=== PATIENT | male | born 1960 | race Caucasian/White ===

== ENCOUNTER 2017-11-26 12:10 | Emergency (ER) | payer OTHER ==
[2017-11-26 12:12] VITALS: BMI 25.4
[2017-11-26 12:22] VITALS: BP 145/86; PULSE 81; RESP 16; TEMP 97.9; O2SAT 96
--- NOTE | 2017-11-26 13:16 | C.PDOC ---
History Of Present Illness REQUESTING MED REFILL. RAN OUT 1 MO AGO "I LOST TRACK OF TIME". OTHERWISE ASYMPT EXAM NEG Time Seen by Provider: 11/26/17 12:41 Chief Complaint (Nursing): Med Refill History Per: Patient History/Exam Limitations: no limitations Onset/Duration Of Symptoms: Other (ran out of meds 1 month ago) Past Medical History Reviewed: Historical Data, Nursing Documentation, Vital Signs Vital Signs: Last Vital Signs Temp 97.9 F 11/26/17 12:20 Pulse 81 11/26/17 12:20 Resp 16 11/26/17 12:20 BP 145/86 11/26/17 12:20 Pulse Ox 96 11/26/17 13:16 - Medical History PMH: Diabetes, HTN, Hyperlipidemia Surgical History: Back Surgery Family History: States: No Known Family Hx - Social History Hx Tobacco Use: No (Ex-smoker) Hx Alcohol Use: No Hx Substance Use: No - Immunization History Hx Tetanus Toxoid Vaccination: No Hx Influenza Vaccination: No Hx Pneumococcal Vaccination: No Review Of Systems Except As Marked, All Systems Reviewed And Found Negative. Constitutional: Negative for: Fever Cardiovascular: Negative for: Chest Pain Respiratory: Negative for: Shortness of Breath Gastrointestinal: Negative for: Nausea, Vomiting Neurological: Negative for: Weakness, Numbness Physical Exam - Physical Exam Appears: Non-toxic, No Acute Distress Skin: Warm, Dry, No Rash Eye(s): bilateral: Normal Inspection, PERRL, EOMI Oral Mucosa: Moist Respiratory: Normal Breath Sounds Extremity: Normal ROM, No Swelling Neurological/Psych: Oriented x3, Normal Speech ED Course And Treatment O2 Sat by Pulse Oximetry: 96 Disposition Counseled Patient/Family Regarding: Diagnosis, Need For Followup, Rx Given - Disposition Referrals: [facility] [Outside] [facility] [Outside] Disposition: HOME/ ROUTINE Disposition Time: 13:15 Condition: GOOD Prescriptions: Aspirin [Aspirin Chewable] 81 mg PO DAILY #14 chew metFORMIN [glucOPHAGE] 500 mg PO Q12H #30 tab Simvastatin 10 mg PO HS #15 tablet Instructions: Medicine Refill (ED) Forms: [facility] [facility] (Mexican) - Clinical Impression Clinical Impression: Medicine refill - Scribe Statement The provider has reviewed the documentation as recorded by the Kalliibamy French Provider Attestation: All medical record entries made by the Scribe were at my direction and personally dictated by me. I have reviewed the chart and agree that the record accurately reflects my personal performance of the history, physical exam, medical decision making, and the department course for this patient. I have also personally directed, reviewed, and agree with the discharge instructions and disposition.
== END 2017-11-26 13:27 | disposition home or self-care (01) ==
LOC: C.ER 12:10
DX: Z76.0 Encounter for issue of repeat prescription (principal)

== ENCOUNTER 2017-11-27 16:15 | Emergency (ER) | payer OTHER ==
[2017-11-27 16:15] VITALS: BMI 25.4
--- NOTE | 2017-11-27 18:24 | C.PDOC ---
History Of Present Illness 57 yo male w/PMhx of HTN come in request medical refill for Losartan, ran out yesterday. Pt denies any active complaints at present time, denies headache, dizziness, visual changes, focal deficits, neck pain, CP, SOB, dyspnea, palpitation, abd. pain, N/V/D, back pain. Ambulate to ED for evaluation, not in any apparent distress. Time Seen by Provider: 11/27/17 18:00 Chief Complaint (Nursing): Med Refill History Per: Patient Past Medical History Reviewed: Historical Data, Nursing Documentation, Vital Signs Vital Signs: Last Vital Signs Temp 98.5 F 11/27/17 17:10 Pulse 80 11/27/17 17:10 Resp 20 11/27/17 17:10 BP 161/100 H 11/27/17 17:10 Pulse Ox 97 11/27/17 18:24 - Medical History PMH: Diabetes, HTN, Hyperlipidemia Denies: Chronic Kidney Disease Surgical History: Back Surgery Family History: States: Unknown Family Hx - Social History Hx Tobacco Use: No (Ex-smoker) Hx Alcohol Use: No Hx Substance Use: No - Immunization History Hx Tetanus Toxoid Vaccination: No Hx Influenza Vaccination: No Hx Pneumococcal Vaccination: Yes Review Of Systems Except As Marked, All Systems Reviewed And Found Negative. Constitutional: Negative for: Fever, Chills Eyes: Negative for: Vision Change ENT: Negative for: Ear Discharge, Nose Discharge, Throat Pain Cardiovascular: Negative for: Chest Pain, Palpitations, Edema, Light Headedness Respiratory: Negative for: Cough, Shortness of Breath, Wheezing Gastrointestinal: Negative for: Nausea, Vomiting, Abdominal Pain, Diarrhea Genitourinary: Negative for: Dysuria, Incontinence Musculoskeletal: Negative for: Neck Pain, Back Pain Skin: Negative for: Rash Neurological: Negative for: Weakness, Numbness, Altered Mental Status, Headache , Dizziness Physical Exam - Physical Exam Appears: Well, Non-toxic, No Acute Distress Skin: Normal Color, Warm, Dry, No Rash Head: Normacephalic Eye(s): bilateral: PERRL Nose: No Flaring Oral Mucosa: Moist Neck: Trachea Midline, Supple Cardiovascular: Rhythm Regular, No Murmur, No JVD, Other ((-) CAROTID BRUITS B/L ) Respiratory: No Decreased Breath Sounds, No Accessory Muscle Use, No Stridor, No Wheezing Gastrointestinal/Abdominal: Soft, No Tenderness, No Distention, No Guarding Extremity: Normal ROM, No Deformity, No Swelling Neurological/Psych: Oriented x3, Normal Speech, Normal Motor, Normal Sensation, Normal Reflexes ED Course And Treatment O2 Sat by Pulse Oximetry: 97 Pulse Ox Interpretation: Normal Progress Note: On re-evaluation, pt is afebrile, hemodynamicaly stable. NOn- toxic. Tolerate PO well in ED. PulsEOx 97% RA. Neck: Supple,(-) JVD. ENT: no acute findings. Lungs: CTA B/L, BS equal B/L. CVA: (+)S1S2, reg. Abd: benign. Back: (-) CVA tenderness. Neurologicaly intact. pt advised. ref. to f/u with PMD in 2-3 days for re-eval. return if any worsening or new changes. Disposition Counseled Patient/Family Regarding: Diagnosis, Need For Followup, Rx Given - Disposition Referrals: [facility] [Outside] Disposition Time: 18:24 Condition: STABLE Additional Instructions: TAKE MEDICATION PRESCRIBED FOLLOW UP WITH PMD IN 2-3 DAYS FOR RE-EVALUATION AND MEDICATION REFILL RETURN IF ANY NEW CHANGES. Prescriptions: Losartan [Cozaar] 50 mg PO DAILY #30 tab Instructions: Medicine Refill (ED), Hypertension (ED) Forms: [employer] (Persian) Print Language: LATVIAN - Clinical Impression Clinical Impression: Medication refill, Hypertension
[2017-11-27 18:53] VITALS: BP 149/79; PULSE 77; RESP 18; TEMP 97.2; O2SAT 99
== END 2017-11-27 18:45 | disposition home or self-care (01) ==
LOC: C.ER 16:15
DX: Z76.0 Encounter for issue of repeat prescription (principal); I10 Essential (primary) hypertension; E11.9 Type 2 diabetes mellitus without complications; E78.5 Hyperlipidemia, unspecified; Z87.891 Personal history of nicotine dependence

== ENCOUNTER 2018-06-03 09:40 | Emergency (ER) | payer OTHER ==
[2018-06-03 09:52] VITALS: BMI 33.3
[2018-06-03 09:55] VITALS: BP 134/75; PULSE 71; RESP 18; TEMP 98.1; O2SAT 100
--- NOTE | 2018-06-03 10:09 | C.PDOC ---
History Of Present Illness 58 year old male presents to the emergency department with complaints of decreased hearing from his left ear. Patient states that four weeks ago, when he was working some water went into his left ear. Patient states that at the time his ear was painful, but the pain has since resolved. Patient denies fever , ear discharge, sore throat, runny nose, cough, rash. Time Seen by Provider: 06/03/18 09:52 Chief Complaint (Nursing): ENT Problem History Per: Patient Onset/Duration Of Symptoms: Other (four weeks) Current Symptoms Are (Timing): Still Present Quality (Ear): Other (decreased hearing) Symptoms Have Been: Continuous Past Medical History Reviewed: Historical Data, Nursing Documentation, Vital Signs Vital Signs: Last Vital Signs Temp 98.1 F 06/03/18 09:52 Pulse 71 06/03/18 09:52 Resp 18 06/03/18 09:52 BP 134/75 06/03/18 09:52 Pulse Ox 100 06/03/18 12:37 - Medical History PMH: Diabetes, HTN, Hyperlipidemia Surgical History: Back Surgery Family History: States: No Known Family Hx - Social History Hx Tobacco Use: No (Ex-smoker) Hx Alcohol Use: No Hx Substance Use: No - Immunization History Hx Tetanus Toxoid Vaccination: No Hx Influenza Vaccination: No Hx Pneumococcal Vaccination: Yes Review Of Systems Constitutional: Negative for: Fever ENT: Positive for: Other (left ear: decreased hearing). Negative for: Ear Discharge, Nose Congestion, Throat Pain Respiratory: Negative for: Cough, Shortness of Breath Physical Exam - Physical Exam Appears: Well, Non-toxic, No Acute Distress Skin: Warm, Dry, No Rash Eye(s): bilateral: Normal Inspection Ear(s): Left: Other (canal mildly swollen, with white discharge present, normal appearing TM ), Right: Normal (no mastoid TTP B/L ) Nose: Normal Oral Mucosa: Moist Throat: Normal, No Erythema, No Exudate Neck: Normal, Supple Lymphatic: No Adenopathy Cardiovascular: Rhythm Regular Respiratory: Normal Breath Sounds, No Rales, No Rhonchi, No Wheezing Neurological/Psych: Oriented x3 ED Course And Treatment O2 Sat by Pulse Oximetry: 100 (RA) Pulse Ox Interpretation: Normal Progress Note: Patient given Rx for Ofloxacin otic, and instructed to follow up with ENT within 1 week, especially if symptoms persist. He understands he should return to ED if symptoms worsen. Disposition Counseled Patient/Family Regarding: Diagnosis, Need For Followup, Rx Given - Disposition Referrals: Pawan Colbert MD [Staff Provider] - Disposition: HOME/ ROUTINE Disposition Time: 10:15 Condition: STABLE Additional Instructions: FOLLOW UP WITH EAR NOSE THROAT SPECIALIST WITHIN 1 WEEK USE EAR DROPS INSTRUCTED RETURN TO EMERGENCY ROOM IF SYMPTOMS WORSEN SEGUIMIENTO CON ESPECIALISTA DE [place] DE OJOS DE ODO DENTRO DE 1 SEMANA UTILIZAR LAS GOTAS DEL ODO SEGN LAS INSTRUCCIONES REGRESE AL LAEKSHIA DE EMERGENCIA SI LOS SNTOMAS EMPEORAN Prescriptions: Ofloxacin Otic 0.3% [Floxin 0.3% Otic Soln] 10 drop GT ONCE #1 bottle Instructions: Outer Ear Infection (DC) Forms: [facility] (Anguillan) Print Language: LITHUANIAN - Clinical Impression Clinical Impression: Left otitis externa - Scribe Statement The provider has reviewed the documentation as recorded by the Scribe (Remington Juarezqvi) Provider Attestation: All medical record entries made by the Scribe were at my direction and personally dictated by me. I have reviewed the chart and agree that the record accurately reflects my personal performance of the history, physical exam, medical decision making, and the department course for this patient. I have also personally directed, reviewed, and agree with the discharge instructions and disposition.
== END 2018-06-03 10:01 | disposition home or self-care (01) ==
LOC: C.ER 09:40
DX: H60.92 Unspecified otitis externa, left ear (principal)